=== PATIENT | male | born 1970 | race Caucasian/White ===

== ENCOUNTER 2017-10-20 08:43 | Emergency (ER) | payer SELFPAY ==
[~2017-10-20] VITALS: Ht 195.6 cm; Wt 136.9 kg
[~2017-10-20 08:43] MED LIST: HYDROCHLOROTH12.5 M3 PO
[2017-10-20 11:05] LABS: HEMATOCRIT 42.8 % (38.0-50.0); HEMOGLOBIN 14.9 G/DL (12.5-16.6); MCH 32.8 PG (29.0-34.0); MCHC 34.8 G/DL (30.0-36.0); MCV 94.3 FL (86-99); PLATELET COUNT 203 K/uL (156-360); RBC DIS.WIDTH-SD 41.7 % (39-53); RED BLOOD COUNT 4.54 M/uL (4.00-5.50); WHITE BLOOD COUNT 8.6 K/uL (4.1-10.2)
[2017-10-20 11:14] LABS: PTT 28.2 SEC (25-37)
[2017-10-20 11:16] LABS: CHLORIDE 107 mEq/L (99-109); POTASSIUM 5.3 mEq/L (3.7-5.4); SODIUM 136 mEq/L (136-147)
[2017-10-20 11:18] LABS: GLUCOSE 106 mg/dL (70-99)
[2017-10-20 11:22] LABS: CREATININE 0.8 mg/dL (0.6-1.3); GFR ESTIMATE (CALCULATED) > 59 mL/min/ (58.99-99999)
[2017-10-20 11:23] LABS: UREA NITROGEN (BUN) 14 mg/dL (9-23)
[2017-10-20] MEDS ORDERED: MICROZIDE12.5 M1 PO (11:48)
[2017-10-20] MEDS ORDERED: LIPITOR20 MG PO (11:48)
[2017-10-20] MEDS ORDERED: XARELTO1 EACH PO (11:48)
[2017-10-20] MEDS ORDERED: NAPROSYN500 MG PO (11:50)
[2017-10-20] MEDS ORDERED: FLEXERIL10 MG PO (11:50)
[2017-10-20] MEDS ORDERED: NORCO 5/3251 TABLET PO (11:50)
[2017-10-20 12:01] VITALS: BP 155/86
== END 2017-10-20 12:03 | disposition home or self-care (01) ==
LOC: EME 08:43
PROVIDERS: Nurse Practitioner Family
DX: M54.5 Low back pain (principal); M79.662 Pain in left lower leg; Z86.718 Personal history of other venous thrombosis and embolism; I10 Essential (primary) hypertension; Z87.891 Personal history of nicotine dependence
CPT/HCPCS: 80048; 85027; 85610; 85730; 93005; 93971; 99281; 99284

== ENCOUNTER 2017-10-24 12:34 | Emergency (ER) | payer SELFPAY ==
[~2017-10-24] VITALS: Ht 193 cm; Wt 138.0 kg
[~2017-10-24 12:34] MED LIST changes: +FLEXERIL10 MG PO; +LIPITOR20 MG PO; +MICROZIDE12.5 M1 PO; +NAPROSYN500 MG PO; +NORCO 5/3251 TABLET PO; +XARELTO1 EACH PO
[2017-10-24 16:32] LABS: BASOPHIL (%) 0.8 % (0-1); BASOPHIL COUNT 0.1 K/uL (0-0.1); EOSINOPHIL (%) 1.8 % (0-5); EOSINOPHIL COUNT 0.2 K/uL (0-0.3); HEMATOCRIT 44.9 % (38.0-50.0); HEMOGLOBIN 15.8 G/DL (12.5-16.6); IMMATURE GRANULOCYTE (%) 0.3 % (0.0-0.7); LYMPHOCYTE (%) 17.5 % (15-42); LYMPHOCYTE COUNT 1.6 K/uL (1.0-2.8); MCH 32.4 PG (29.0-34.0); MCHC 35.2 G/DL (30.0-36.0); MCV 92.2 FL (86-99); MONOCYTE (%) 9.3 % (3-12); MONOCYTE COUNT 0.8 K/uL (0-0.8); NEUTROPHIL (%) 70.3 % (45-76); NEUTROPHIL COUNT 6.3 K/uL (1.8-6.4); PLATELET COUNT 236 K/uL (156-360); RBC DIS.WIDTH-CV 11.8 % (11.8-14.6); RBC DIS.WIDTH-SD 39.7 % (39-53); RED BLOOD COUNT 4.87 M/uL (4.00-5.50); WHITE BLOOD COUNT 8.9 K/uL (4.1-10.2)
[2017-10-24 16:42] LABS: ALBUMIN 4.2 g/dL (3.2-4.8); PTT 29.7 SEC (25-37)
[2017-10-24 16:43] LABS: CHLORIDE 102 mEq/L (99-109); POTASSIUM 4.5 mEq/L (3.7-5.4); SODIUM 136 mEq/L (136-147)
[2017-10-24 16:45] LABS: GLUCOSE 95 mg/dL (70-99); TOTAL PROTEIN 7.4 g/dL (6.4-8.3)
[2017-10-24 16:47] LABS: TOTAL BILIRUBIN 0.5 mg/dL (0.0-1.0)
[2017-10-24 16:48] LABS: ALKALINE PHOSPHATASE 53 IU/L (3-129)
[2017-10-24 16:49] LABS: CREATININE 1.1 mg/dL (0.6-1.3); GFR ESTIMATE (CALCULATED) > 59 mL/min/ (58.99-99999)
[2017-10-24 16:50] LABS: AST (GOT) 32 IU/L (2-34); UREA NITROGEN (BUN) 17 mg/dL (9-23)
[2017-10-24 16:51] LABS: ALT (GPT) 44 IU/L (3-49)
[2017-10-24 17:06] LABS: CREATINE KINASE 1153 IU/L (1-294)
[2017-10-24 22:49] VITALS: BP 137/90
== END 2017-10-24 22:50 | disposition short-term general hospital (02) ==
LOC: EME 12:34
PROVIDERS: Emergency Medicine
DX: I99.8 Other disorder of circulatory system (principal); I10 Essential (primary) hypertension; Z86.718 Personal history of other venous thrombosis and embolism
CPT/HCPCS: 73630; 80053; 82550; 85025; 85610; 85730; 99281; 99285; J2270; J2405

== ENCOUNTER 2017-11-07 14:48 | Emergency (ER) | payer SELFPAY ==
[~2017-11-07] VITALS: Ht 182.9 cm; Wt 125.5 kg
[2017-11-07 16:01] LABS: HEMATOCRIT 21.9 % (38.0-50.0); HEMOGLOBIN 7.6 G/DL (12.5-16.6); MCH 32.5 PG (29.0-34.0); MCHC 34.7 G/DL (30.0-36.0); MCV 93.6 FL (86-99); PLATELET COUNT 540 K/uL (156-360); RBC DIS.WIDTH-CV 12.8 % (11.8-14.6); RBC DIS.WIDTH-SD 42.8 % (39-53); RED BLOOD COUNT 2.34 M/uL (4.00-5.50); WHITE BLOOD COUNT 17.9 K/uL (4.1-10.2)
[2017-11-07 16:02] LABS: CHLORIDE 104 mEq/L (99-109); POTASSIUM 5.6 mEq/L (3.7-5.4); SODIUM 133 mEq/L (136-147)
[2017-11-07 16:03] LABS: GLUCOSE 104 mg/dL (70-99)
[2017-11-07 16:04] LABS: INTER. NORMALIZED RATIO 1.4
[2017-11-07 16:06] LABS: PTT 32.6 SEC (25-37)
[2017-11-07 16:07] LABS: GFR ESTIMATE (CALCULATED) > 59 mL/min/ (58.99-99999)
[2017-11-07 16:08] LABS: UREA NITROGEN (BUN) 20 mg/dL (9-23)
[2017-11-07 18:24] VITALS: BP 103/77
== END 2017-11-07 18:28 | disposition home or self-care (01) ==
LOC: EME 14:48
PROVIDERS: Emergency Medicine
DX: D64.9 Anemia, unspecified (principal); M96.830 Postprocedural hemorrhage of a musculoskeletal structure following a musculoskeletal system procedure; Y83.8 Other surgical procedures as the cause of abnormal reaction of the patient, or of later complication, without mention of misadventure at the time of the procedure; I10 Essential (primary) hypertension; Z86.718 Personal history of other venous thrombosis and embolism; Z98.890 Other specified postprocedural states
CPT/HCPCS: 80048; 85027; 85610; 85730; 99281; 99285; J7030